=== PATIENT | male | born 1970 | race Caucasian/White ===

== ENCOUNTER 2019-08-28 06:51 | Emergency (ER) | payer BC ==
[2019-08-28] MEDS ORDERED: ACETAMINOPHEN 500 MG TAB ONE (07:26)
--- NOTE | 2019-08-28 07:50 | EDPHYS ---
Physician Documentation [facility] Name: Alejandro Ashley Age: 49 yrs Sex: Male : 1970 Arrival Date: 08/28/2019 Time: 06:55 Bed 6 Private MD: GREER Physician Aydin Luo HPI: 08/27 07:28 This 49 yrs old Male presents to ER via Ambulatory with complaints of Fever, kb Cough. 07:28 The patient or guardian reports cough, that is intermittent, described as moderate, kb with no sputum, flu symptoms, low-grade fever, myalgias. Onset: The symptoms/episode began/occurred 3 day(s) ago. Severity of symptoms: At their worst the symptoms were moderate, in the emergency department the symptoms are unchanged. Modifying factors: The symptoms are alleviated by nothing, the symptoms are aggravated by nothing. Associated signs and symptoms: Pertinent positives: fever, Pertinent negatives: chest pain, diarrhea, ear ache, nausea, rhinorrhea, sore throat, vomiting. The patient has not experienced similar symptoms in the past. The patient has not recently seen a physician. Pt reports "severe fever and body aches with cough" for 3 days. Fever is subjective ("I don't have a fever roller checker at home"). Pt denies sick contacts and travel. States "I've been trying to quarantine for the last 3 days, but my symptoms are just getting worse." . Historical: - Allergies: 07:09 No Known Allergies; bb - Home Meds: 07:09 None [Active]; bb - PMHx: 07:09 lymphoma; bb - PSHx: 07:09 right toe amputation; eye surgery; lymphoma biopsy; bb - Immunization history:: Adult Immunizations up to date. - Social history:: Smoking status: Patient reports the use of cigarette tobacco products, smokes one-half pack cigarettes per day, Patient uses alcohol, occasionally. Patient/guardian denies using street drugs. ROS: 07:26 ENT: Negative for injury, pain, and discharge, Neck: Negative for injury, pain, and kb swelling, Cardiovascular: Negative for chest pain, palpitations, and edema, Abdomen/GI: Negative for abdominal pain, nausea, vomiting, diarrhea, and constipation, Back: Negative for injury and pain, MS/Extremity: Negative for injury and deformity, Skin: Negative for injury, rash, and discoloration, Neuro: Negative for headache, weakness, numbness, tingling, and seizure. 07:26 Constitutional: Positive for body aches, chills, fever, malaise, Negative for fatigue, poor PO intake, weight loss. 07:26 Respiratory: Positive for cough, Negative for dyspnea on exertion, hemoptysis, orthopnea, pleurisy, shortness of breath, sputum production, wheezing. Exam: 07:26 Constitutional: This is a well developed, well nourished patient who is awake, alert, kb and in no acute distress. Head/Face: Normocephalic, atraumatic. ENT: Nares patent. No nasal discharge, no septal abnormalities noted. Tympanic membranes are normal and external auditory canals are clear. Oropharynx with no redness, swelling, or masses, exudates, or evidence of obstruction, uvula midline. Mucous membranes moist. Neck: Trachea midline, no thyromegaly or masses palpated, and no cervical lymphadenopathy. Supple, full range of motion without nuchal rigidity, or vertebral point tenderness. No Meningismus. Chest/axilla: Normal chest wall appearance and motion. Nontender with no deformity. No lesions are appreciated. Cardiovascular: Regular rate and rhythm with a normal S1 and S2. No gallops, murmurs, or rubs. Normal PMI, no JVD. No pulse deficits. Respiratory: Lungs have equal breath sounds bilaterally, clear to auscultation and percussion. No rales, rhonchi or wheezes noted. No increased work of breathing, no retractions or nasal flaring. Abdomen/GI: Soft, non-tender, with normal bowel sounds. No distension or tympany. No guarding or rebound. No evidence of tenderness throughout. Skin: Warm, dry with normal turgor. Normal color with no rashes, no lesions, and no evidence of cellulitis. MS/ Extremity: Pulses equal, no cyanosis. Neurovascular intact. Full, normal range of motion. Neuro: Awake and alert, GCS 15, oriented to person, place, time, and situation. Cranial nerves II-XII grossly intact. Motor strength 5/5 in all extremities. Sensory grossly intact. Cerebellar exam normal. Normal gait. Vital Signs: 07:05 BP 129 / 77; Pulse 104; Resp 18 S; Temp 100.7(O); Pulse Ox 97% on R/A; Weight 79.38 kg bb (R); Height 6 ft. 0 in. (182.88 cm) (R); Pain 8/10; 07:05 Body Mass Index 23.73 (79.38 kg, 182.88 cm) bb MDM: 06:57 Patient medically screened. kb 07:26 Data reviewed: vital signs, nurses notes. Data interpreted: Pulse oximetry: on room air kb is 97 %. Interpretation: normal. 07:49 Counseling: I had a detailed discussion with the patient and/or guardian regarding: the kb historical points, exam findings, and any diagnostic results supporting the discharge/admit diagnosis, lab results, radiology results, the need for outpatient follow up, a family practitioner, to return to the emergency department if symptoms worsen or persist or if there are any questions or concerns that arise at home. 08/27 07:02 Order name: Flu; Complete Time: 07:47 kb 08/27 07:02 Order name: Chest Pa And Lat (2 Views) XRAY kb Administered Medications: 07:33 Drug: Tylenol 1000 mg Route: PO; sv 08:00 Follow up: Response: No adverse reaction sv Disposition: 14:14 Co-signature as Attending Physician, Aydin Luo MD I agree with the assessment and raul plan of care. Disposition: 08/28/19 07:50 Discharged to Home. Impression: Influenza due to certain identified influenza viruses. - Condition is Stable. - Discharge Instructions: Influenza, Adult, [id number]. - Medication Reconciliation Form, Thank You Letter, Antibiotic Education, Prescription Opioid Use form. - Follow up: Emergency Department; When: As needed; Reason: Worsening of condition. Follow up: Private Physician; When: 2 - 3 days; Reason: Recheck today's complaints, Continuance of care, Re-evaluation by your physician. Signatures: Dispatcher [employer] Saira Camacho, Manju Olivares RN RN Aydin Olmedo MD MD cha Ballard, Brenda, RN RN bb Williams, Irene, RN RN iw Corrections: (The following items were deleted from the chart) 08:03 07:50 08/28/2019 07:50 Discharged to Home. Impression: Influenza due to certain iw identified influenza viruses. Condition is Stable. Forms are Medication Reconciliation Form, Thank You Letter, Antibiotic Education, Prescription Opioid Use. Follow up: Emergency Department; When: As needed; Reason: Worsening of condition. Follow up: Private Physician; When: 2 - 3 days; Reason: Recheck today's complaints, Continuance of care, Re-evaluation by your physician. kb
--- NOTE | 2019-08-28 07:50 | ER ---
Nurse's Notes [facility] Name: Alejandro Ashley Age: 49 yrs Sex: Male : 1970 Arrival Date: 08/28/2019 Time: 06:55 Bed 6 Private MD: Diagnosis: Influenza due to certain identified influenza viruses Presentation: 08/27 07:05 Chief complaint: Patient states: he has had severe fever and body aches for 3 days last bb took advil at 1600 yesterday. Coronavirus screen: The patient has NOT traveled to a country currently being monitored by the CDC within the last 14 days. Proceed with normal triage procedures. Ebola Screen: No symptoms or risks identified at this time. Initial Sepsis Screen: Does the patient meet any 2 criteria? No. Patient's initial sepsis screen is negative. Does the patient have a suspected source of infection? No. Patient's initial sepsis screen is negative. Risk Assessment: Do you want to hurt yourself or someone else? Patient reports no desire to harm self or others. 07:05 Method Of Arrival: Ambulatory bb 07:05 Acuity: RHYS 4 bb 07:05 Onset of symptoms was August 25, 2019. bb Historical: - Allergies: 07:09 No Known Allergies; bb - Home Meds: 07:09 None [Active]; bb - PMHx: 07:09 lymphoma; bb - PSHx: 07:09 right toe amputation; eye surgery; lymphoma biopsy; bb - Immunization history:: Adult Immunizations up to date. - Social history:: Smoking status: Patient reports the use of cigarette tobacco products, smokes one-half pack cigarettes per day, Patient uses alcohol, occasionally. Patient/guardian denies using street drugs. Screenin:02 Abuse screen: Denies threats or abuse. Denies injuries from another. Nutritional iw screening: No deficits noted. Tuberculosis screening: No symptoms or risk factors identified. Fall Risk None identified. Assessment: 07:50 General: Appears in no apparent distress. Behavior is calm, cooperative. General: iw Reports feeling ill for fatigue for. Pain: Complains of pain in all over body aches. Neuro: Level of Consciousness is awake, alert, obeys commands, Oriented to person, place, time, situation. Cardiovascular: Patient's skin is warm and dry. Respiratory: Respiratory effort is even, unlabored. Derm: Skin is intact, is healthy with good turgor. Musculoskeletal: Range of motion: intact in all extremities. Vital Signs: 07:05 BP 129 / 77; Pulse 104; Resp 18 S; Temp 100.7(O); Pulse Ox 97% on R/A; Weight 79.38 kg bb (R); Height 6 ft. 0 in. (182.88 cm) (R); Pain 8/10; 07:05 Body Mass Index 23.73 (79.38 kg, 182.88 cm) bb ED Course: 06:55 Patient arrived in ED. cl3 06:56 [facility]C [facility] kb 06:56 Aydin Luo MD is Attending Physician. kb 07:07 Triage completed. bb 07:09 Arm band placed on Patient placed in an exam room, on a stretcher, on pulse oximetry. bb 07:13 Manju Llamas, RN is Primary Nurse. sv 07:15 Patient has correct armband on for positive identification. iw 07:22 Chest Pa And Lat (2 Views) XRAY In Process Unspecified. EDMS 07:28 Awaiting radiology results. sv 08:03 No provider procedures requiring assistance completed. Patient did not have IV access iw during this emergency room visit. Administered Medications: 07:33 Drug: Tylenol 1000 mg Route: PO; sv 08:00 Follow up: Response: No adverse reaction sv Outcome: 07:50 Discharge ordered by MD. kb 08:03 Discharged to home ambulatory. iw 08:03 Condition: good 08:03 Discharge instructions given to patient, Instructed on discharge instructions, follow up and referral plans. Demonstrated understanding of instructions, follow-up care. 08:03 Patient left the ED. iw Signatures: Dispatcher [employer] EDMS Saira Worthy FNP-C FNP-Manju Damon RN RN sv Ballard, Brenda, RN RN bb Williams, Irene, RN RN iw Lewis, Charde cl3
[2019-08-28 08:10] VITALS: BP 129/77; TEMP 100.7; O2SAT 97
--- NOTE | 2019-08-28 08:51 | RAD REPORT ---
EXAM DESCRIPTION: RAD - Chest Pa And Lat (2 Views) - 08/28/2019 7:27 am CLINICAL HISTORY: COUGHfever, body aches COMPARISON: None TECHNIQUE: Frontal and lateral views of the chest were obtained. FINDINGS: The lungs are clear. Right suprahilar granulomas type calcification present. Heart size i s normal and central vasculature is within normal limits. No pleural effusion or pneumothorax seen. No acute bony finding noted. No aortic abnormality. IMPRESSION: No acute cardiopulmonary process.
== END 2019-08-28 08:03 | disposition home or self-care (01) ==
LOC: ER 06:51
DX: J10.89 Influenza due to other identified influenza virus with other manifestations (principal)
CPT/HCPCS: 71046; 87804; 99283